=== PATIENT | female | born 1990 | race Asian ===

== ENCOUNTER 2016-09-14 19:43 | Emergency (ER) | payer OTHER ==
[~2016-09-14 19:43] MED LIST: FIORICET 325 MG1 TAB PO; METFORMIN ER500 MG PO; MULTIVITAMIN1 TAB PO; NUVARING1 ICR VG; PERCOCET 325 MG1 TA2 PO; VICODIN5-300 PO
[2016-09-14 20:27] VITALS: BP 135/99
--- NOTE | 2016-09-14 21:34 | ED HEADACHE COMPLAINT ---
History of Present Illness General Chief Complaint: Headache Stated Complaint: PT ON HER 4 DAY OF MIGRAINE Source: patient, family Exam Limitations: no limitations Vital Signs & Intake/Output Vital Signs & Intake/Output Vital Signs Date Time Temp Pulse Resp B/P B/P Pulse O2 O2 Flow FiO2 Mean Ox Delivery Rate 09/14 2026 97.6 118 22 135/99 98 ED Intake and Output 09/15 0000 09/14 1200 Intake Total 2000 Output Total Balance 1999 Intake, IV 1999 Allergies Coded Allergies: Iodinated Contrast Media - Oral and (Severe, HIVES 09/14/16) meloxicam (Severe, HIVES 09/14/16) morphine (Severe, HIVES 09/14/16) shellfish derived (Severe, HIVES 09/14/16) Reconcile Medications Acetaminophen/Butalbital/Caf (Fioricet 325 MG-50 MG-40 MG) 1 TAB TAB 1-2 TAB PO Q6P PRN HEADACHE Amoxicillin 500 MG TABLET 1 TAB PO TID sinusitis ETONOGESTREL/ETHINYL ESTRADIOL (Nuvaring Vaginal Ring) 0.12 MG -0.015 MG/24 HR VAG.RING 1 EACH VG Q30D CONTROL/MENSTRUAL REG. (Reported) use for 3 weeks, skip for 1 week Metformin Hydrochloride (Metformin ER) [address] 1 TAB PO DAILY DIABETES ( Reported) Triage Note: PER PT DAY 4 OF OCULAR MIGRAINE, USED IMITREX, BOTOX AND EXCEDRIN WITHOUT EFFECT. ALSO DX WITH SINUS INFECTION AND COUGH IS MAKING MENDEZ WORSE. LMP 08/11 Triage Nurses Notes Reviewed? yes Onset: Gradual Duration: day(s): (4) Timing: recent history Quality/Severity: moderate, pressure, stabbing Severity Numbers: 8 Head Injury Location: ocular No Modifying Factors: none Associated Symptoms: n/v : No Patient currently breastfeeds: No HPI: Patient is a 25-year-old female with history of diabetes and ocular migraines presenting to the emergency department with chief complaint of ocular migraines vision loss. She's been trying to take Imitrex at home with little relief. She also reports associated nausea and vomiting. No fevers or chills. She is also currently being worked up for an auto immune disease by her production scheduler who she saw today. She was started on prednisone today. Denies any chest pain or palpitations. No abdominal pain. Denies any change in urinary habits or bowel habits. She currently undergoes Botox treatments for her migraines as well. She saw her neurologist approximately 2 months ago. This feels typical of her ocular migraines but she is unable to manage at home so she came in for evaluation. No recent travel. She is currently on antibiotics for sinus infection that she was diagnosed with on Monday. (LEO GRAHAM) Past History Travel History Traveled to [place] past 21 day No Medical History Any Pertinent Medical History? 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 No (LEO GRAHAM) Review of Systems Review of Systems Constitutional: Reports: no symptoms. Comments Review of systems: See HPI, All other systems negative. Constitutional, no chills fever or weight loss HEENT: no sore throat no congestion Cardiovascular: No chest pain ,palpitation , orthopnea or ankle swelling Skin, no jaundice no rashes Respiratory: No dyspnea cough sputum or hemoptysis GI: No diarrhea : No dysuria No hematuria Muscle skeletal: no back pain, no neck pain, Neurologic: No numbness no confusion Psych: No stress anxiety Immunology: No splenectomy or history of AIDS (LEO GRAHAM) Physical Exam Physical Exam General Appearance: well developed/nourished, no apparent distress, alert, awake , comfortable, fatigued Cranial Nerves: cn 2-12 intact Comments: Well-developed well-nourished person in no acute distress HEENT:extraocular motion intact, no nystagmus. Pupils equally round and reactive to light and accommodation. Nose is atraumatic. External auditory canal and Tympanic membranes clear. Pharynx normal. No swelling or edema. Tenderness to palpation of the maxillary sinuses bilaterally. Funduscopic: Somewhat limited secondary to no dilation prior to exam, no obvious retinal detachment or venous nicking appreciated. Neck: Supple, no lymphadenopathy, normal range of motion without pain or tenderness, negative meningeal signs. Back: Nontender Cardiovascular: Regular rate and rhythms no murmurs rubs or gallops, normal JVP Respiratory: Chest nontender. No respiratory distress.breath sounds clear to auscultation bilaterally Abdomen: Soft, nontender nondistended, no appreciable organomegaly. Normal bowel sounds. No ascites Extremity: No edema, poor range of motion of upper and lower sherries without difficulty or pain. Neuro: Alert oriented x3, motor sensory normal, cranial nerves II through XII grossly intact. Cerebellar testing is unremarkable. Skin: No appreciable rash on exposed skin, skin is warm and dry. Psych: Mood and affect is normal, memory and judgment is normal. Core Measures Severe Sepsis Present: No Septic Shock Present: No (LEO GRAHAM) Progress Differential Diagnosis: cluster MENDEZ, intracranial Hem., meningitis, migraine MENDEZ, musculoskeletal pain, subarach. Hem., tension MENDEZ, temporal arteritis Plan of Care: Orders Procedure Date/time Status Add-on Test (ER Only) 09/14 2330 Active CULTURE,URINE 09/15 2311 Active URINE 09/14 2302 Complete URINALYSIS 09/14 2302 Complete Laboratory Tests 09/14/162311: Urine Color YEL, Urine Clarity CLEAR, Urine pH 6.0, Ur Specific [place] 1.010, Urine Protein NEG, Urine Ketones NEG, Urine Nitrite NEG, Urine Bilirubin NEG, Urine Urobilinogen 0.2, Ur Leukocyte Esterase SMALL H, Ur Microscopic SEDIMENT EXAMINED, Ur Epithelial Cells RARE, Urine Hemoglobin NEG, Urine Glucose NEG, Urine Test NEGATIVE Microbiology 09/15 2311 URINE ROUT: Urine Culture - RECD Comments: Patient medicated with IV fluids, IV Dilaudid, IV Zofran. Patient reports that this is typical of her ocular migraines. On reevaluation patient feeling improved after fluid, Reglan and Dilaudid. Patient requesting that we change her antibiotics that she is currently on for sinusitis. She reports diarrhea since being on it. She'll follow-up with her neurologist. No signs of meningitis. (LEO GRAHAM) Departure Departure Time of Disposition: 2335 Disposition: HOME OR SELF CARE Condition: Stable Clinical Impression Primary Impression: Migraine Qualifiers: Migraine type: unspecified Status migrainosus presence: without status migrainosus Intractability: not intractable Qualified Code: G43.909 - Migraine, unspecified, not intractable, without status migrainosus Secondary Impressions: Sinusitis Qualifiers: Sinusitis location: unspecified location Chronicity: unspecified Qualified Code: J32.9 - Chronic sinusitis, unspecified Referrals: DEN PHOENIX,EVERTON Fortune (PCP/Family) Additional Instructions: Follow-up with your primary care physician: Call to make an appointment. Increase fluids. Continue daily medications as previously prescribed. Return for worsening symptoms or concerns. Take amoxicillin as prescribed to help with sinus infection. Departure Forms: Customer Survey General Discharge Information Prescriptions: Current Visit Scripts Amoxicillin 1 TAB PO TID #30 TAB (EAMON COOL,LEO) PA/CONTRACT OFFICER Co-Sign Statement Statement: ED Attending supervision documentation- [] I saw and evaluated the patient. I have also reviewed all the pertinent lab results and diagnostic results. I agree with the findings and the plan of care as documented in the PA's/CONTRACT OFFICER's documentation. [x] I have reviewed the ED Record and agree with the PA's/CONTRACT OFFICER's documentation. [] Additions or exceptions (if any) to the PAs/CONTRACT OFFICER's note and plan are summarized below: [] (CRISELDA PHOENIX,FRANCINE Ospina)
[2016-09-14] MEDS ORDERED: AMOXICILLIN500 M3 PO (23:38)
== END 2016-09-15 00:16 ==
LOC: ERH 19:43
DX: G43.909 Migraine, unspecified, not intractable, without status migrainosus (principal); J32.9 Chronic sinusitis, unspecified; R11.2 Nausea with vomiting, unspecified
CPT/HCPCS: 81001; 81025; 87071; 87086; 87088; 96374; 96375; 96376; J2405; J2765

== ENCOUNTER 2017-12-17 11:15 | Emergency (ER) | payer OTHER ==
[~2017-12-17] VITALS: Ht 160 cm; Wt 81.6 kg
[~2017-12-17 11:15] MED LIST changes: +AMOXICILLIN500 M3 PO; +AMOXICILLIN875 M1 PO; +LEVOCETIRIZINE D5 M1 PO; +METFORMIN HCL500 M4 PO; +NUVARING VAGIN1 EACH VG; +PREDNISONE20 M1 PO; +PROMETHAZINE-C118 ML PO; +ZOFRAN ODT4 M1 SL
[2017-12-17 11:38] VITALS: BP 134/98
--- NOTE | 2017-12-17 12:19 | ED HAND/WRIST INJURY COMPLAINT ---
History of Present Illness General Chief Complaint: Laceration Procedure Stated Complaint: CUT OFF TIP OF THUMB CUTTING THUMB Source: patient Exam Limitations: no limitations Vital Signs & Intake/Output Vital Signs & Intake/Output Vital Signs Date Time Temp Pulse Resp B/P B/P Pulse O2 O2 Flow FiO2 Mean Ox Delivery Rate 12/17 1138 98.6 69 18 134/98 96 Room Air Allergies Coded Allergies: Iodinated Contrast- Oral and IV Dye (IODINATED CONTRAST MEDIA - ORAL AND) ( Severe, HIVES 09/14/16) meloxicam (Severe, HIVES 09/14/16) morphine (Severe, HIVES 09/14/16) shellfish derived (Severe, HIVES 09/14/16) Reconcile Medications Acetaminophen/Butalbital/Caf (Fioricet 325 MG-50 MG-40 MG) 1 TAB TAB 1-2 TAB PO Q6P PRN HEADACHE Amoxicillin 875 MG TABLET 1 TAB PO BID sinusitis Amoxicillin 500 MG TABLET 1 TAB PO TID sinusitis Cephalexin (Keflex) 500 MG CAPSULE 1 CAP PO TID WOUND INFECTION PPX ETONOGESTREL/ETHINYL ESTRADIOL (Nuvaring Vaginal Ring) 0.12 MG -0.015 MG/24 HR VAG.RING 1 EACH VG Q30D CONTROL/MENSTRUAL REG. (Reported) use for 3 weeks, skip for 1 week Etonogestrel/Ethinyl Estradiol (Nuvaring Vaginal Ring) 0.12 MG -0.015 MG/24 HR VAG.RING 1 EACH VG Q30D BCP (Reported) use for 3 weeks, skip for 1 week Levocetirizine Dihydrochloride 5 MG TABLET 1 TAB PO DAILY SLEEP (Reported) Metformin HCl (Metformin HCl ER) 500 MG TAB.ER.24H 1 TAB PO BID DM (Reported) Metformin Hydrochloride (Metformin ER) [address] 1 TAB PO DAILY DIABETES ( Reported) Ondansetron (Zofran Odt) 4 MG TAB.RAPDIS 1 TAB SL TID PRN nausea Prednisone 20 MG TABLET 1 TAB PO BID sinusitis Promethazine HCl/Codeine (Promethazine-Codeine Syrup) 6.25 MG-10 MG/5 ML SYRUP 5-10 ML PO Q4-6 PRN cough Triage Note: PT FROM HOME C/O LAC TO TIP OF LT THUMB. PT STATES 30-40 MINS PRIOR SHE WAS CUTTING A PEPPER AND SLICED THE TIP OF HER THUMB OFF. BLEEDING CONTROLLED IN TRIAGE. TRAVON SY IN FOR EVAL. REWRAPPED WITH PRESSURE DRESSING. VSS. PT STAETS UTD ON TETANUS. Triage Nurses Notes Reviewed? yes Occurred: just prior to arrival Duration: hour(s): (1), constant, continues in ED, getting worse Timing: single episode today Injury Environment: home Severity: mild, moderate Severity Numbers: 6 Pain/Injury Location: Left: 1st finger. Context: incision Method of Injury: laceration No Modifying Factors: none Modifying Factors: Worsens With: movement. LMP (ages 10-50): unknown : No Patient currently breastfeeds: No HPI: 27-year-old female no past medical history resents for evaluation of a laceration to the distal segment of her left thumb. Patient states she was cutting a pepper when the knife slipped causing her to cut the tip of her left thumb. She denies any other injuries no numbness or tingling. No difficulty with movement. She reports bleeding was controlled with a towel. She is up-to- date on tetanus. (Renny Larson) Past History Travel History Traveled to [place] past 21 day No Medical History Any Pertinent Medical History? 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 No (Renny Larson) Review of Systems Review of Systems Constitutional: Reports: no symptoms. EENTM: Reports: no symptoms. Respiratory: Reports: no symptoms. Cardiovascular: Reports: no symptoms. GI: Reports: no symptoms. Genitourinary: Reports: no symptoms. Musculoskeletal: Reports: no symptoms. Skin: Reports: see HPI (laceration/avulsion). Neurological/Psychological: Reports: no symptoms. Hematologic/Endocrine: Reports: no symptoms. Immunologic/Allergic: Reports: no symptoms. All Other Systems: Reviewed and Negative (Renny Larson) Physical Exam Physical Exam General Appearance: well developed/nourished, no apparent distress, alert, awake Head: atraumatic, normal appearance Eyes: Bilateral: normal appearance, EOMI. Ears, Nose, Throat: hearing grossly normal Neck: normal inspection, supple, full range of motion Cardiovascular/Respiratory: normal breath sounds, normal peripheral pulses, regular rate/rhythm, no respiratory distress Back: normal inspection, normal range of motion Shoulder Left: normal range of motion, normal inspection Shoulder Right: normal range of motion, normal inspection Elbow Left: normal range of motion, normal inspection Elbow Right: normal range of motion, normal inspection Forearm Left: normal range of motion, normal inspection Forearm Right: normal range of motion, normal inspection Wrist Left: normal range of motion, normal inspection Wrist Right: normal range of motion, normal inspection Hand Left: normal range of motion, lacerations, evidence of injury, 1st finger, there is a avulsion injury to the skin of the distal left thumb. There is no damage to the nail no damage to the bone there is some active bleeding for range of motion intact neurovascular supply intact Hand Right: normal inspection, normal range of motion Neurologic/Tendon: normal sensation, normal motor functions, normal tendon functions Skin: intact, normal color, warm/dry (Renny Larson) Progress Differential Diagnosis: abscess, contusion, sprain, tenosynovitis, laceration, avulsion Plan of Care: Patient is here with an avulsion to her left thumb. She is up-to-date on tetanus. No evidence of bone or nail injury. Neurovascular supply is intact. The area was flushed with sterile water chlorhexidine used to clean the area. Surgicel pressure dressing applied. Advised patient to keep this dressing intact for 48 hours and then gently change. Discussed wound care procedures in detail. Good hemostasis was achieved in the emergency department. Patient will be covered with cephalexin. Discussed return precautions patient agrees the plan (Renny Larson) Departure Departure Disposition: HOME OR SELF CARE Condition: Stable Clinical Impression Primary Impression: Avulsion of skin of thumb Qualifiers: Encounter type: initial encounter Laterality: left Qualified Code: S61.002A - Unspecified open wound of left thumb without damage to nail, initial encounter Referrals: Augustine PHOENIX,Jovanni Fortune (PCP/Family) Additional Instructions: Keep the area clean and dry. Keep dressing in place for 48-72 hours then gently removed and replaced. Take antibiotics as directed. Change dressing once daily. LoOK OUT for signs of infection like redness swelling discharge or pain. Make a follow-up with her primary care doctor for recheck in a few days. Monitor symptoms return with any concerns. Departure Forms: Customer Survey General Discharge Information Prescriptions: Current Visit Scripts Cephalexin (Keflex) 1 CAP PO TID #21 CAP (Renny Larson) PA/EXPERIMENTAL WELDER Co-Sign Statement Statement: ED Attending supervision documentation- [] I saw and evaluated the patient. I have also reviewed all the pertinent lab results and diagnostic results. I agree with the findings and the plan of care as documented in the PA's/EXPERIMENTAL WELDER's documentation. [x] I have reviewed the ED Record and agree with the PA's/EXPERIMENTAL WELDER's documentation. [] Additions or exceptions (if any) to the PAs/EXPERIMENTAL WELDER's note and plan are summarized below: [] (Trenton PHOENIX,[facility])
[2017-12-17] MEDS ORDERED: KEFLEX500 M1 PO (12:35)
== END 2017-12-17 12:47 ==
LOC: ERH 11:15
DX: S61.002A Unspecified open wound of left thumb without damage to nail, initial encounter (principal); W26.0XXA Contact with knife, initial encounter; Y93.G1 Activity, food preparation and clean up; Y92.009 Unspecified place in unspecified non-institutional (private) residence as the place of occurrence of the external cause